=== PATIENT | male | born 1945 | race Caucasian/White ===

== ENCOUNTER 2024-12-09 11:19 | Emergency (ER) | payer MEDICARE ==
[~2024-12-09] VITALS: Ht 162.5 cm; Wt 76.2 kg
[2024-12-09 11:52] LABS: BASO % 0.3 % (0.0-1.0); EOS # 0.1 10*3/uL (0.0-0.4); HEMATOCRIT 47.8 % (42.0-52.0); MEAN CELL VOLUME 91.7 fl (80.0-94.0); MEAN CORPUSCULAR HGB 30.7 pg (27.0-31.0); MEAN CORPUSCULAR HGB CONC 33.5 g/dl (33.0-37.0); MEAN PLATELET VOLUME 9.7 fl (9.6-12.3); MONO # 1.3 10*3/uL (0.1-1.0); MONO % 13.4 % (3.0-9.0); NEUT # 6.5 10*3/uL (2.3-7.9); NEUT % 65.4 % (47.0-73.0); PLATELET COUNT AUTOMATED 201 10*3/uL (130-400); RED BLOOD COUNT 5.21 10*6/uL (4.50-5.90); RED CELL DISTRI WIDTH 12.9 % (0-14.5); WHITE BLOOD COUNT 9.9 10*3/uL (4.8-10.8)
[2024-12-09 12:03] LABS: ACT PARTIAL THROMBO TIME 25.2 SECONDS (20.0-32.1)
[2024-12-09] MEDS ORDERED: SODIUM CHLORIDE 0.9% 1,000 ML IV ONE (12:10)
[2024-12-09 12:16] LABS: ALKALINE PHOSPHATASE 46 U/L (46-116); BUN 15 mg/dl (9-23); CHLORIDE 106 mmol/L (98-107); POTASSIUM 4.8 mmol/L (3.4-5.1); SGPT/ALT 33 U/L (5-49); TOTAL PROTEIN 6.8 gm/dL (6.0-8.0)
== END 2024-12-09 15:55 | disposition short-term general hospital (02) ==
LOC: ED 11:19
PROVIDERS: Internal Medicine
DX: I10 Essential (primary) hypertension (principal); I44.2 Atrioventricular block, complete